=== PATIENT | male | born 1980 | race Caucasian/White ===

== ENCOUNTER 2024-11-07 15:05 | Emergency (ER) | payer SELFPAY ==
[~2024-11-07] VITALS: Ht 152.4 cm; Wt 73.0 kg
[2024-11-07 15:24] VITALS: O2SAT 97
[2024-11-07] MEDS: IBUPROFEN 600MG TABLET PO ONE (17:15)
[2024-11-07] MEDS ORDERED: KETO10TA2 MT (20:35)
[2024-11-07 21:04] VITALS: BP 127/89; PULSE 61; RESP 16; TEMP 36.8; O2SAT 100
== END 2024-11-07 21:08 | disposition home or self-care (01) ==
LOC: ER 15:05
DX: S01.312A Laceration without foreign body of left ear, initial encounter (principal); E78.00 Pure hypercholesterolemia, unspecified; R51.9 Headache, unspecified; X58.XXXA Exposure to other specified factors, initial encounter; Y93.89 Activity, other specified; Y92.89 Other specified places as the place of occurrence of the external cause; Y99.8 Other external cause status
CPT/HCPCS: 12013; 99284